=== PATIENT | male | born 1950 | race Caucasian/White ===

== ENCOUNTER 2016-08-09 19:33 | Emergency (ER) | payer OTHER ==
[~2016-08-09] VITALS: Ht 177.8 cm; Wt 65.8 kg
--- NOTE | 2016-08-09 19:37 | ED SKIN/ALLERGY COMPLAINT ---
History of Present Illness General Chief Complaint: Allergy Symptoms Stated Complaint: ALLERGIC REACTION TO BEE STING Source: patient, family, old records, EMS Exam Limitations: no limitations Vital Signs & Intake/Output Vital Signs & Intake/Output Vital Signs Date Time Temp Pulse Resp B/P B/P Pulse O2 O2 Flow FiO2 Mean Ox Delivery Rate 08/09 2332 97.5 74 20 109/62 96 Room Air 08/09 2108 72 20 118/75 95 Room Air 08/09 1947 98.7 93 21 122/70 95 Room Air ED Intake and Output 08/10 0000 08/09 1200 Intake Total Output Total Balance Patient 145 lb Weight Weight Estimated Measurement Method Allergies Coded Allergies: venom-honey bee (ANAPHYLAXIS 08/09/16) Reconcile Medications Epinephrine (Auvi-Q) 0.3 MG/0.3 ML AUTO.INJCT 0.3 MG IM AD PRN ALLERGIC REACTION (Reported) Epinephrine (Epipen 2-Lico) 0.3 MG/0.3 ML AUTO.INJCT 0.3 ML SQ PRN PRN ANAPHYLAXIS Methylprednisolone. (Medrol) 4 MG TAB.DS.PK 1 DP PO AD ALLERGIC REACTION 6 on day 1 then reduce by one tablet daily until gone Triage Nurses Notes Reviewed? yes HPI: Patient was stung by a bee on the nose. Patient remembers walking in his house and then does not remember anything after that until being in the ambulance. Patient has a known allergy to bees. His gave him his EpiPen. EpiPen in 2002. Patient had 2 syncopal episodes. His also gave him 25 mg of Benadryl by mouth, Benadryl was also . Upon EMS arrival patient was laying on the floor diaphoretic and a blood pressure of 50 palp. An IV was inserted. Patient was given Solu-Medrol and IV Benadryl. The patient's vital signs improved. Patient did not require additional epinephrine. Upon presentation to the emergency room patient is feeling much better. He is awake alert and oriented. He has no difficulty breathing or swallowing. He states that he has an itchy rash which is diffuse but it is much improved. He denies any pain. Past History Medical History Any Pertinent Medical History? none Surgical History Surgical History: non-contributory Psychosocial History Tobacco Use: Quit >30 days ago ETOH Use: occasional use Illicit Drug Use: denies illicit drug use Family History Hx Contributory? No Review of Systems Review of Systems Constitutional: Reports: no symptoms. EENTM: Reports: no symptoms. Respiratory: Reports: no symptoms. Cardiovascular: Reports: no symptoms. GI: Reports: no symptoms. Genitourinary: Reports: no symptoms. Musculoskeletal: Reports: no symptoms. Skin: Reports: see HPI, rash. Neurological/Psychological: Reports: no symptoms. Hematologic/Endocrine: Reports: no symptoms. Immunologic/Allergic: Reports: no symptoms. All Other Systems: Reviewed and Negative Physical Exam Physical Exam General Appearance: well developed/nourished, alert, awake, mild distress Head: atraumatic, normal appearance Eyes: Bilateral: PERRL, EOMI. Ears, Nose, Throat: normal pharynx, normal ENT inspection, hearing grossly normal, NO EDEMA Neck: normal inspection, supple, full range of motion Respiratory: normal breath sounds, chest non-tender, no respiratory distress, lungs clear Cardiovascular: regular rate/rhythm, normal peripheral pulses Gastrointestinal: normal bowel sounds, soft, non-tender Back: normal inspection Extremities: normal inspection, normal capillary refill, normal range of motion, no edema Neurologic/Psych: no motor/sensory deficits, awake, alert, oriented x 3, normal mood/affect Skin: rash Skin Problem Location: generalized Skin Problem Character: urticarial Lymphatic: no anterior cervical nuha Progress Differential Diagnosis: allergic reaction, anaphylaxis Plan of Care: Orders Procedure Date/time Status Telemetry/Investigator 08/09 1934 Active Departure Departure Disposition: HOME OR SELF CARE Condition: Stable Clinical Impression Primary Impression: Anaphylaxis Referrals: DILLON SLATER,BRIDGET Florez (PCP/Family) Additional Instructions: RETURN IF SYMPTOMS WORSEN OR FOR ANY CONCERNS Departure Forms: Customer Survey General Discharge Information Prescriptions: Current Visit Scripts Epinephrine (Epipen 2-Lico) 0.3 ML SQ PRN PRN ANAPHYLAXIS #2 AMP Ref 2 Methylprednisolone. (Medrol) 1 DP PO AD #1 DP 6 on day 1 then reduce by one tablet daily until gone Critical Care Note Critical Care Note Critical Care Time: mins: (90 MIN)
[2016-08-09] MEDS ORDERED: [UNRECOGNIZED DRUG - OTHER] IM (19:40)
[2016-08-09] MEDS ORDERED: MEDROL4 M2 PO (23:31)
[2016-08-09] MEDS ORDERED: EPIPEN 2-P0.3 MG/0.3 SQ (23:31)
[2016-08-09 23:32] VITALS: BP 109/62
== END 2016-08-09 23:48 ==
LOC: ERH 19:33
DX: T63.441A Toxic effect of venom of bees, accidental (unintentional), initial encounter (principal)